=== PATIENT | female | born 1980 | race Caucasian/White ===

== ENCOUNTER 2019-04-03 15:08 | Outpatient (CLI) | payer SELFPAY ==
--- NOTE | 2019-04-03 15:14 | XR_ITS ---
WS: [id number] CHEST 2 VIEWS HISTORY: WHEEZING,COUGH,DYSPNEA, SARCOIDOSIS COMPARISON: 12/12/2018 Lungs: Clear with no abnormality. No pleural effusion or pneumothorax. Cardiac size: Normal. Mediastinum/Aorta: Normal mediastinum. Bones: Normal. XR/XR chest 2V* [id number] IMPRESSION: Normal chest.
== END 2019-04-03 15:09 | disposition home or self-care (01) ==
LOC: RADWPI 15:10
PROVIDERS: Family Provider Family Medicine; PCP Family Medicine; Referring Provider Nurse Practitioner Family; Visit Provider Nurse Practitioner Family
DX: D86.9 Sarcoidosis, unspecified (principal); R06.2 Wheezing; R05 Cough; R06.09 Other forms of dyspnea
CPT/HCPCS: 71046

== ENCOUNTER → 2020-03-22 17:08 | Outpatient (BNVA) | payer OTHER, SELFPAY | PROVIDERS: Family Provider Family Medicine; PCP Family Medicine; Visit Provider Nurse Practitioner | DX: Z20.828 Contact with and (suspected) exposure to other viral communicable diseases (principal) | CPT/HCPCS: 87635 ==

== ENCOUNTER → 2021-09-17 12:17 | Outpatient (BNVA) | payer OTHER, SELFPAY | PROVIDERS: Family Provider Family Medicine; Visit Provider Family Medicine | DX: Z51.81 Encounter for therapeutic drug level monitoring (principal); R53.81 Other malaise; R53.83 Other fatigue; E78.5 Hyperlipidemia, unspecified; E11.8 Type 2 diabetes mellitus with unspecified complications | CPT/HCPCS: 80053; 80061; 83036; 84439; 84443; 85025 ==

== ENCOUNTER 2021-10-08 05:36 | Day surgery (SDC) | payer OTHER, SELFPAY ==
[2021-10-07 09:08] VITALS: BMI 34.1
[2021-10-08 06:04] VITALS: BP 167/98; PULSE 75; RESP 16; TEMP 36.6; O2SAT 98
[2021-10-08] MEDS: sodium chloride 0.9% 1,000 ML 30 ML IV (06:15)
[2021-10-08 06:16] LABS: Glucose Point of Care 133 mg/dL (70-110)
[2021-10-08 06:28] LABS: OR HCG Qualitative Urine Negative (Negative)
--- NOTE | 2021-10-08 06:33 | ANES.PREANE2 ---
Pre-Anesthetic Assessment Height/Weight: Height 1.65 m Weight 92.986 kg Temp Pulse Resp BP Pulse Ox 97.8 F 75 16 167/98 98 10/08/21 06:04 10/08/21 06:04 10/08/21 06:04 10/08/21 06:04 10/08/21 06:04 Preop Diagnosis: Subcutaneous scalp mass Operation Date: 10/08/21 07:00 Proposed Procedures p excision of subcutaneous mass scalp 67962,R22.9(Not Applicable) - Ruben Murry DO Familial anesthetic complications: None Was Beta Madison taken within 24 hours: N/A Was Clonidine taken within 24 hours: N/A Last intake: Intake Last Liquid Date 10/07/21 Last Liquid Time 19:00 Last Solid Date 10/07/21 Last Solid Time 19:00 Social No alcohol and No tobacco Exam alert, oriented x 3, clear to auscultation bilaterally and regular rate & rhythm Airway Mallampati: Class IV Dentition: other (missing) Pulmonary None reported CV/HEM Hypertension None reported Hepatic None reported GI None reported Metabolic Hyperlipidemia [facility] – [place], [place]/[facility] sarcoidosis - per patient 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 Neuropsych Depression Anesthetic Plan ASA status: 2 Anesthesia: Choice Risk of > 500 ml blood loss (7ml/kg in children): No Medications/Allergies Home Medications Medication Instructions Recorded Confirmed Last Taken Type lisinopril 5 mg tablet 5 mg PO DAILY 05/04/19 10/08/21 10/07/21 History lovastatin 10 mg tablet 10 mg PO DAILY 05/04/19 10/08/21 10/07/21 History metformin 1,000 mg tablet 1,000 mg PO DAILY 05/04/19 10/08/21 10/07/21 History triamcinolone acetonide 0.1 % 1 applic TOPICAL BID 7 Days #15 g 05/14/20 10/08/21 10/07/21 Rx topical cream clotrimazole 1 % topical cream 1 applic TOPICAL BID 28 Days #45 g 08/21/20 10/08/21 10/07/21 Rx bupropion HCl 75 mg tablet 150 mg PO TID tab 09/29/21 10/08/21 10/07/21 History Allergies Allergy/AdvReac Type Severity Reaction Status Date / Time carbamazepine [From Tegretol] Allergy Mild Rash Verified 09/29/21 11:21 Current Medications Generic Name Dose Route Start Last Admin Trade Name Freq PRN Reason Stop Dose Admin Sodium Chloride 1,000 mls @ 30 mls/hr 10/08/21 06:00 10/08/21 06:15 Sodium Chloride 0.9% IV 10/09/21 05:59 30 mls/hr .Q24H SOLO Administration PFSH Anesthesia Medical History (Updated 09/29/21 @ 11:33 by Ruben Murry DO) Diabetes mellitus High cholesterol Hypertension Sarcoid Surgical History History of ankle surgery Family History Other Cancer Diabetes Social History Smoking and tobacco status: former smoker Alcohol intake: never Household members: spouse and children Marital status: Current occupational status: employed Current occupation: [employer] Female Reproductive History Date of last menstrual period: 09/29/21 Data Anesthesia Cardiac Studies: No Data to Display
--- NOTE | 2021-10-08 07:07 | W.PM.OPSUD ---
Surgery/Procedure H&P Update DATE OF PROCEDURE: October 08, 2021 DATE H&P PERFORMED: 09/29/21 CHANGES TO PREVIOUS DOCUMENTATION: NONE PREOP DIAGNOSIS: Subcutaneous scalp mass PLANNED PROCEDURE: Operation Date: 10/08/21 07:00 Proposed Procedures p excision of subcutaneous mass scalp 14628,R22.9(Not Applicable) - Ruben Murry DO
[2021-10-08] MEDS: ceFAZolin 2,000 MG in sodium chloride 0.9% (plus) 50 ML 100 MG IV (07:11)
--- NOTE | 2021-10-08 07:38 | PM.OP ---
Operative Report Date of procedure: October 08, 2021 Pre-op diagnosis: Preop Diagnosis Subcutaneous scalp mass Post-op diagnosis: same Procedure done: Excision of subcutaneous scalp mass Specimens removed/disposition: Subcutaneous scalp mass Surgeon: Dr. Ruben Murry DO Estimated blood loss: 5 Complications: None apparent Brief History: Patient with a subcutaneous scalp mass. She desired excision. Risks and benefits were explained and documented. Procedure: The area was inspected prepped and draped in the usual sterile fashion. 2% lidocaine with epinephrine was used to anesthetize the area around the lesion which measured 1.5 centimeters in greatest diameter. A 15 blade scalpel then used to make an elliptical excision measuring 2 centimeters in length. Incision was carried down to subcutaneous tissue and the specimen was passed off. 2-0 and 3-0 nylon was used to close the scalp in a vertical mattress and simple interrupted fashion Hemostasis was noted. Bacitracin was applied. Patient tolerated the procedure well
[2021-10-08] MEDS: neomycin-poly-bacitracin oint 28 gm 1 APPLIC TOPICAL (07:41)
[2021-10-08 07:48] VITALS: BP 156/93; PULSE 80; RESP 16; TEMP 36.3; O2SAT 98
[2021-10-08 07:50] VITALS: BP 156/93; PULSE 74; RESP 15; O2SAT 98
[2021-10-08 07:55] VITALS: BP 138/96; PULSE 77; RESP 18; TEMP 36.8; O2SAT 96
[2021-10-08 07:57] VITALS: BP 127/91; PULSE 77; RESP 15; TEMP 36.6; O2SAT 99
[2021-10-08 08:12] VITALS: BP 135/86; PULSE 84; RESP 16; O2SAT 97
--- NOTE | 2021-10-08 12:54 | ANE.PACU2 ---
Inpatient post-anesthesia follow up: Airway intact: Yes Vital signs: Temperature 98 F Pulse Rate 84 Respiratory Rate 16 Blood Pressure 135/86 Pulse Oximetry 97 Oxygen Delivery Me thod Room Air Oxygen Flow Rate Fraction of Inspir ed Oxygen Hydration adequate: Yes Nausea and vomiting: No Pain level: 1 Mental status: Baseline
== END 2021-10-08 08:20 | disposition home or self-care (01) ==
PROVIDERS: PCP Family Medicine; Visit Provider Surgery
PROC: (CPT 11422; principal; 2021-10-08 07:00)
DX: L72.12 Trichodermal cyst (principal); I10 Essential (primary) hypertension; E78.5 Hyperlipidemia, unspecified; F32.9 Major depressive disorder, single episode, unspecified; E11.9 Type 2 diabetes mellitus without complications; Z79.84 Long term (current) use of oral hypoglycemic drugs; Z87.891 Personal history of nicotine dependence
CPT/HCPCS: 11422; 36416; 81025; 82962; 84703; 88304; J2250; J2370; J2704; J3010; J7030

== ENCOUNTER 2021-10-09 08:22 | Outpatient (CLI) | payer OTHER, SELFPAY ==
--- NOTE | 2021-10-09 08:28 | MM_ITS ---
WS: [id number] BILATERAL SCREENING DIGITAL BREAST TOMOSYNTHESIS MAMMOGRAM WITH CAD HISTORY: SCREENING COMPARISON: 08/18/2017 Bilateral CC and MLO views with tomosynthesis and synthetic mammography submitted. Computer aided det ection analyzed. Breast composition: There are scattered areas of fibroglandular density. No suspicious masses, microc alcifications or architectural distortion. MM/[place] [id number] IMPRESSION: BI-RADS: 1-Negative FOLLOW UP: 1 Year Follow-up
== END 2021-10-09 08:23 | disposition home or self-care (01) ==
PROVIDERS: PCP Family Medicine; Visit Provider Family Medicine
DX: Z12.31 Encounter for screening mammogram for malignant neoplasm of breast (principal)
CPT/HCPCS: 77063; 77067

== ENCOUNTER → 2022-05-05 09:22 | Outpatient (BNVA) | payer OTHER, SELFPAY | PROVIDERS: PCP Family Medicine; Visit Provider Family Medicine | DX: Z51.81 Encounter for therapeutic drug level monitoring (principal); E11.9 Type 2 diabetes mellitus without complications; I10 Essential (primary) hypertension; E53.8 Deficiency of other specified B group vitamins; R30.0 Dysuria; Z13.220 Encounter for screening for lipoid disorders; R07.9 Chest pain, unspecified; R01.1 Cardiac murmur, unspecified; M77.00 Medial epicondylitis, unspecified elbow; Z00.00 Encounter for general adult medical examination without abnormal findings; G47.33 Obstructive sleep apnea (adult) (pediatric) | CPT/HCPCS: 80053; 80061; 81000; 82607; 83036; 85025; 87086 ==

== ENCOUNTER → 2022-05-05 10:07 | Outpatient (BNVA) | payer OTHER, SELFPAY | PROVIDERS: PCP Family Medicine; Visit Provider Family Medicine | DX: Z51.81 Encounter for therapeutic drug level monitoring (principal); E11.9 Type 2 diabetes mellitus without complications; I10 Essential (primary) hypertension; Z13.220 Encounter for screening for lipoid disorders; R30.0 Dysuria; E53.8 Deficiency of other specified B group vitamins; R07.9 Chest pain, unspecified; R01.1 Cardiac murmur, unspecified; M77.00 Medial epicondylitis, unspecified elbow; Z00.00 Encounter for general adult medical examination without abnormal findings; G47.33 Obstructive sleep apnea (adult) (pediatric) | CPT/HCPCS: 87077; 87184 ==

== ENCOUNTER 2022-06-02 06:50 | Outpatient (CLI) | payer OTHER, SELFPAY ==
--- NOTE | 2022-06-02 07:15 | USCV_ITS ---
Kelsi Cross Age: 41 Gender: F : 1980 Exam Date: 06/02/2022 07:17 Ordering Phys: Howard Guerin MD Technologist: Aide Bear Exam Location: [facility] – [place] Indication: SYSTOLIC MURMUR NEWLY FOUND BP: 134 / 84 HR: 68 Rhythm: Sinus Technical Quality: Adequate MEASUREMENTS (Male / Female) Normal Values 2D ECHO LV Diastolic Diameter PLAX 2.5 cm 4.2 - 5.9 / 3.9 - 5.3 cm LV Systolic Diameter PLAX 2.1 cm LV Chamber Size 3.8 cm IVS Diastolic Thickness 0.9 cm 0.6 - 1.0 / 0.6 - 0.9 cm IVS Systolic Thickness 1.2 cm LVPW Diastolic Thickness 0.9 cm 0.6 - 1.0 / 0.6 - 0.9 cm LVPW Systolic Thickness 1.5 cm LVOT Diameter 2.0 cm LV Ejection Fraction 2D Teich 31.7 % LV Ejection Fraction MOD 2C 64.0 % LV Ejection Fraction 2C AL 63.0 % LA Diameter 2.7 cm LA Width 2.8 cm LA Height 5.0 cm RA Width 2.8 cm RA Height 3.8 cm Aorta at Sinotubular Diameter 2.7 cm IVC Diameter 1.8 cm M-MODE Aortic Annulus Diameter 3.2 cm LA Ao Ratio MM 0.8 MV E Point Septal Separation 1.0 cm DOPPLER LVOT Peak Velocity 75.0 cm/s MV Peak Velocity 97.0 cm/s MV Area PHT 3.4 cm squared Mitral E to A Ratio 1.3 MV E' Velocity 52.0 cm/s Mitral E to MV E' Ratio 7.9 Mitral E to LV E' Lateral Ratio 5.9 Mitral E to LV E' Septal Ratio 12.0 TR Peak Velocity 177.0 cm/s TR Peak Gradient 12.6 mmHg TR Mean Velocity 126.5 cm/s TR Mean Gradient 7.1 mmHg TR Velocity Time Integral 48.9 cm TV Peak E Velocity 78.0 cm/s Right Atrial Pressure 3.0 mmHg Pulmonary Artery Systolic Pressu 15.5 mmHg PV Peak Velocity 82.0 cm/s RV Acceleration Time 0.1 s RV Ejection Time 0.3 s RV AcT/ET 0.3 FINDINGS Left Ventricle Normal left ventricular size, systolic function and wall thickness, with no regional wall motion abnormalities. Left ventricular ejection fraction is estimated at 60 %. Right Ventricle The right ventricle is normal in size and function. Right Atrium The right atrium is normal in size. Left Atrium The left atrium is normal in size. Mitral Valve Structurally normal mitral valve without significant stenosis or prolapse. Trace mitral regurgitation. Aortic Valve Moderate aortic valve calcification.no aortic valve stenosis. Mild aortic valve regurgitation. Tricuspid Valve Trace tricuspid valve regurgitation. Pulmonic Valve Structurally normal pulmonic valve without significant stenosis. There is no pulmonic regurgitation. Pericardium Normal pericardium without effusion. Aorta Normal ascending aorta dimension. IVC The inferior vena cava appears normal. CONCLUSIONS 1-Normal left ventricular size, systolic function and wall thickness, with no regional wall motion abnormalities. Left ventricular ejection fraction is estimated at 60 %. 2-Moderate aortic valve calcification.no aortic valve stenosis. Mild aortic valve regurgitation. 3-There is no pericardial effusion. 4-There is no pericardial effusion. 5-Right atrial pressure is around 5 mm of mercury. Opal Breen MD (Electronically Signed) Final Date: 02 June 2022 12:51 S
== END 2022-06-02 06:51 | disposition home or self-care (01) ==
LOC: RAD 06:52
PROVIDERS: PCP Family Medicine; Visit Provider Family Medicine
DX: R01.1 Cardiac murmur, unspecified (principal); R07.9 Chest pain, unspecified; I35.0 Nonrheumatic aortic (valve) stenosis
CPT/HCPCS: 80053; 80061; 81000; 82607; 83036; 85025; 87086; 93306

== ENCOUNTER 2022-06-03 20:00 | Outpatient (CLI) | payer OTHER, SELFPAY | END 2022-06-03 20:01 | disposition home or self-care (01) | LOC: SLEEP 06-04 06:33 | PROVIDERS: PCP Family Medicine; Visit Provider Specialist | DX: G47.33 Obstructive sleep apnea (adult) (pediatric) (principal) | CPT/HCPCS: 95810 ==

== ENCOUNTER 2022-10-16 10:12 | Outpatient (CLI) | payer OTHER, SELFPAY ==
--- NOTE | 2022-10-16 10:27 | MM_ITS ---
WS: [id number] SCREENING DIGITAL TOMOSYNTHESIS MAMMOGRAM WITH CAD HISTORY: SCREENING COMPARISON: 10/09/2021: 08/18/2017 Bilateral CC and MLO with tomosynthesis views submitted. Synthetic mammography reviewed. Computer aid ed detection analyzed. Breast composition: There are scattered areas of fibroglandular density. No suspicious masses, microc alcifications or architectural distortion. MM/[place] [id number] IMPRESSION: BI-RADS: 1-Negative FOLLOW UP: 1 Year Follow-up
== END 2022-10-16 10:13 | disposition home or self-care (01) ==
LOC: RAD 10:19 → MOBLMAM 10:25
PROVIDERS: PCP Family Medicine; Visit Provider Advanced Practice Midwife
DX: Z12.31 Encounter for screening mammogram for malignant neoplasm of breast (principal)
CPT/HCPCS: 77063; 77067

== ENCOUNTER → 2022-11-05 09:37 | Outpatient (BNVA) | payer OTHER, SELFPAY | PROVIDERS: PCP Family Medicine; Visit Provider Family Medicine | DX: R53.81 Other malaise (principal); R53.83 Other fatigue; E11.9 Type 2 diabetes mellitus without complications; Z51.81 Encounter for therapeutic drug level monitoring | CPT/HCPCS: 80053; 80061; 83036; 84439; 84443; 85025 ==

== ENCOUNTER → 2023-08-30 08:58 | Outpatient (BNVA) | payer OTHER, SELFPAY | PROVIDERS: PCP Family Medicine; Visit Provider Family Medicine | DX: Z51.81 Encounter for therapeutic drug level monitoring (principal); E11.9 Type 2 diabetes mellitus without complications; E53.8 Deficiency of other specified B group vitamins | CPT/HCPCS: 80053; 82607; 83036; 85025 ==

== ENCOUNTER → 2023-12-22 10:24 | Outpatient (BNVA) | payer OTHER, SELFPAY | PROVIDERS: PCP Family Medicine; Visit Provider Family Medicine | DX: Z00.00 Encounter for general adult medical examination without abnormal findings (principal); Z13.220 Encounter for screening for lipoid disorders; R79.89 Other specified abnormal findings of blood chemistry; E53.8 Deficiency of other specified B group vitamins | CPT/HCPCS: 80048; 80061; 82607; 83036; 87624 ==

== ENCOUNTER 2023-12-29 13:49 | Outpatient (CLI) | payer OTHER, SELFPAY ==
--- NOTE | 2023-12-29 14:00 | MM_ITS ---
WS: [id number] BILATERAL 3D TOMOSYNTHESIS DIGITAL SCREENING MAMMOGRAPHY WITH CAD CLINICAL INFORMATION: Screening HISTORY: Screening mammogram. No current complaints. COMPARISON: 2022 TECHNIQUE: Bilateral CC and MLO views. FINDINGS: Scattered fibroglandular densities bilaterally. No suspicious focal mass, asymmetry, calcifications, or architectural distortion. No evidence of malignancy. Few tiny incidental punctate calcifications. MM/MM scr tomosynthesis [id number] IMPRESSION: DENSITY: There are scattered areas of fibroglandular density. BI-RADS: 2 - Benign FOLLOW UP: 1 Year Follow-up Recommend return to annual screening mammography.
== END 2023-12-29 13:50 | disposition home or self-care (01) ==
LOC: RAD 13:49
PROVIDERS: PCP Family Medicine; Visit Provider Family Medicine
DX: Z12.31 Encounter for screening mammogram for malignant neoplasm of breast (principal)
CPT/HCPCS: 77063; 77067

== ENCOUNTER → 2024-06-06 10:08 | Outpatient (BNVA) | payer OTHER, SELFPAY | PROVIDERS: PCP Family Medicine; Visit Provider Family Medicine | DX: Z13.6 Encounter for screening for cardiovascular disorders (principal); Z51.81 Encounter for therapeutic drug level monitoring | CPT/HCPCS: 80061 ==

== ENCOUNTER → 2024-12-21 12:16 | Outpatient (BNVA) | payer OTHER, SELFPAY | PROVIDERS: PCP Family Medicine; Visit Provider Family Medicine | DX: Z00.00 Encounter for general adult medical examination without abnormal findings (principal); E53.8 Deficiency of other specified B group vitamins; R61 Generalized hyperhidrosis; R53.81 Other malaise; R53.83 Other fatigue; Z13.6 Encounter for screening for cardiovascular disorders; E11.9 Type 2 diabetes mellitus without complications; Z51.81 Encounter for therapeutic drug level monitoring | CPT/HCPCS: 80053; 80061; 82607; 83001; 83036; 84439; 84443; 85025 ==

== ENCOUNTER 2024-12-29 13:31 | Outpatient (CLI) | payer OTHER, SELFPAY ==
--- NOTE | 2024-12-29 14:00 | MM_ITS ---
WS: [id number] BILATERAL 3D TOMOSYNTHESIS DIGITAL SCREENING MAMMOGRAPHY WITH CAD CLINICAL INFORMATION: Screening mammogram HISTORY: Screening mammogram. No current complaints. COMPARISON: 2023 TECHNIQUE: Bilateral CC and MLO views. FINDINGS: Scattered fibroglandular densities bilaterally. No suspicious focal mass, asymmetry, calcifications, or architectural distortion. No evidence of malignancy. A few incidental punctate calcifications. MM/MM scr tomosynthesis [id number] IMPRESSION: DENSITY: There are scattered areas of fibroglandular density. BI-RADS: 2 - Benign. FOLLOW UP: 1 Year Follow-up Recommend return to annual screening mammography.
== END 2024-12-29 13:32 | disposition home or self-care (01) ==
LOC: RAD 13:33
PROVIDERS: PCP Family Medicine; Visit Provider Family Medicine
DX: Z12.31 Encounter for screening mammogram for malignant neoplasm of breast (principal); R92.323 Mammographic fibroglandular density, bilateral breasts; R92.1 Mammographic calcification found on diagnostic imaging of breast
CPT/HCPCS: 77063; 77067